=== PATIENT | female | born 1955 | race Caucasian/White ===

== ENCOUNTER 2016-11-21 19:17 | Emergency (ER) | payer BC ==
[~2016-11-21] VITALS: Ht 160 cm; Wt 63.5 kg
[2016-11-21] MEDS ORDERED: PARO30TA74 PO (19:30)
--- NOTE | 2016-11-21 19:35 | NUR ---
MSE DONE BY DR VILLEGAS AT BEDSIDE ROOM 3A.
--- NOTE | 2016-11-21 19:42 | NUR ---
Patient discharged to home in stable conditon. Written and verbal after care instructions given. Patient verbalizes understanding of instructions.
== END 2016-11-21 19:53 | disposition home or self-care (01) ==
LOC: ER 19:18
DX: L53.9 Erythematous condition, unspecified (principal); T63.451A Toxic effect of venom of hornets, accidental (unintentional), initial encounter; F32.9 Major depressive disorder, single episode, unspecified; Y92.89 Other specified places as the place of occurrence of the external cause
CPT/HCPCS: A4663